=== PATIENT | female | born 1970 | race Caucasian/White ===

== ENCOUNTER 2025-01-18 03:10 | Emergency (ER) | payer BC ==
[~2025-01-18] VITALS: Ht 167.6 cm; Wt 82.1 kg
--- NOTE | 2025-01-18 04:11 | ERN ---
ED Note History of Present Illness Stated Complaint: C/O ABD PAIN W/DIARRHEA, DRY HEAVES, X 3 DAYS Chief Complaint: Abdominal Pain Time Seen by MD: 03:17 Dictation: This is a 54-year-old female who was diagnosed with COVID last week on Friday. She has been on Paxlovid and today is the day for. She came into the ER complaining about abdominal pain and diarrhea for the past 3 days. Nausea vomitings diarrhea abdominal pain she indicated that they just have to new puppies. 1 puppy has Giardia, she reported that she had an anterior neck fusion in on November 30 and has had issues with the dysphagia for pills Patient does not have anymore diarrhea during my evaluation Temperature 98 0.1 pulse 107 respirations 24 blood pressure 154/77 with a pulse oximetry of 94% on room air She is a teacher by profession and does not have any other pertinent history Allergies: Coded Allergies: No Known Allergies (Unverified Allergy, Unknown, 01/18/25) Home Meds Active Scripts Dicyclomine HCl (Bentyl) 10 Mg Cap, 1 CAP PO Q6HPRN PRN for irritable bowel symptoms for 5 Days, #20 CAP 0 Refills Prov:WILMA TUCKER MD 01/18/25 Lactobacillus Acidophilus (Acidophilus Probiotic) 500 Million Cell Capsule, 1 CAP PO BID for 7 Days, #14 CAP 0 Refills Prov:WILMA TUCKER MD 01/18/25 Ondansetron (Ondansetron Odt) 4 Mg Tab.rapdis, 4 MG PO Q6HPRN PRN for nausea, #16 TAB 0 Refills Prov:RAMÍREZ GUERRA MD 01/18/25 Metronidazole (Metronidazole) 500 Mg Tablet, 1 TAB PO BID for 7 Days, #14 TAB 0 Refills Prov:RAMÍREZ GUERRA MD 01/18/25 Past Medical History Past Medical History: No Pertinent History Surgical History: Other Family History: Negative Social History: Negative RN Note Reviewed/Agreed w/PFSH: Yes Review of System Dictation Constitutional: Negative for fever,chills, and weight loss Eyes: Negative for injury, pain,redness, and discharge ENT: Negative for injury,pain or swelling Cardiovascular: Negative for chest pain, palpitations, and edema Respiratory: Negative for shortness of breath, cough, and wheezing, Abdomen/GI: Positive for abdominal pain diarrhea, nausea, vomiting Back: Negative for injury and pain : Negative for injury, bleeding and discharge MS/Extremity: Negative for injury and deformity Skin: Negative for rash, and discoloration Neuro: Negative for headache, weakness, numbness, tingling, and seizure Psych: Negative for suicide ideation, homicidal ideation, and hallucinations Initial Vital Sign VS Vital Signs Date Time Temp Pulse Resp B/P (MAP) Pulse Ox O2 Delivery O2 Flow Rate FiO2 01/18/25 03:12 98.1 107 24 154/77 94 Room Air 01/18/25 03:51 0 21 Physical Exam Dictation General: awake, alert, NAD Head/Face: Normocephalic, atraumatic Eyes: PERRL, EOMI, vision at baseline ENT: oral cavity clear, TMs clear, no signs of infection Neck: Trachea midline, supple, no nuchal rigidity Cardiovascular: RRR, normal S1/S2, No MRGs, no JVD Respiratory: CTAB, no respiratory distress, No rales or wheezes Abdomen: Soft, non-tender, non-distended, normal bowel sounds, no guarding or rebound. Skin: Warm, dry, normal turgor, no rash MS/Extremity: Pulses equal, no cyanosis, neurovascular intact, FROM Neuro: COAx4, GCS 15, strength 5/5, CN 2-12 intact, normal cerebellar exam, normal gait, Psych: Normal behavior, mood, and affect normal Extremities-trace edema without any palpable cords, Homans sign is negative Results (Laboratory/Radiology) Laboratory/Radiology Laboratory Tests Test 01/18/25 04:33 01/18/25 05:06 White Blood Count 8.5 K/uL (4.8-10.8) Red Blood Count 5.03 MIL/uL (4.00-5.50) Hemoglobin 14.8 g/dL (12.0-16.0) Hematocrit 44.1 % (36-48) Mean Corpuscular Volume 87.7 fL (79-99) Mean Corpuscular Hemoglobin 29.4 pg (27.0-33.0) Mean Corpuscular Hemoglobin Concent 33.6 g/dL (32.0-36.0) Red Cell Distribution Width 12.7 % (11.0-15.5) Platelet Count 204 K/uL (130-400) Mean Platelet Volume 10.1 fL (7.5-10.5) Immature Granulocyte % (Auto) 0.4 % (0-1) Neutrophils (%) (Auto) 85.6 % (40.0-77.0) H Lymphocytes (%) (Auto) 7.3 % (21.0-51.0) L Monocytes (%) (Auto) 6.0 % (3.0-13.0) Eosinophils (%) (Auto) 0.6 % (0.0-8.0) Basophils (%) (Auto) 0.1 % (0.0-5.0) Neutrophils # (Auto) 7.3 K/uL (1.8-7.7) Lymphocytes # (Auto) 0.6 K/uL (1.0-4.8) L Monocytes # (Auto) 0.5 K/uL (0.1-1.0) Eosinophils # (Auto) 0.05 K/uL (0.00-0.70) Basophils # (Auto) 0.01 K/uL (0.00-0.20) Absolute Immature Granulocyte (auto 0.03 K/uL (0-1) Nucleated Red Blood Cells 0.0 % (0.0-0.19) White Cell Morphology Comment See comments Sodium Level 140 mmol/L (136-145) Potassium Level 3.9 mmol/L (3.5-5.1) Chloride Level 105 mmol/L (101-111) Carbon Dioxide Level 26 mmol/L (21-32) Blood Urea Nitrogen 12 mg/dL (7-18) Creatinine 0.8 mg/dL (0.5-1.0) Glomerular Filtration Rate Calc 86 mL/min (>90) Random Glucose 120 mg/dL (70-105) H Total Calcium 8.7 mg/dL (8.5-10.1) Lipase 31 U/L (16-77) Human Chorionic Gonadotropin, Quant 4 mIU/mL (0-5) Urine Color LIGHT-YELLOW (YELLOW) Urine Appearance CLEAR (CLEAR) Urine pH 5.0 (5.0-8.0) Urine Specific [place] 1.027 (1.001-1.031) Urine Protein NEGATIVE mg/dL (NEGATIVE) Urine Glucose (UA) NEGATIVE mg/dL (NEGATIVE) Urine Ketones NEGATIVE mg/dL (NEGATIVE) Urine Occult Blood NEGATIVE (NEGATIVE) Urine Nitrate NEGATIVE (NEGATIVE) Urine Bilirubin NEGATIVE mg/dL (NEGATIVE) Urine Urobilinogen 0.2 mg/dL (0.2-1.0) Urine Leukocyte Esterase NEGATIVE James/uL Labs Reviewed?: Yes ED Course ED Course Orders Procedure Category Date Status Time Cbc With Differential LAB 01/18/25 Complete 04:01 Hcg,Quantitative LAB 01/18/25 Complete 04:01 Urinalysis Profile LAB 01/18/25 Complete 04:01 0.9%Nacl 1000ml (Ns PHA 01/18/25 Complete 1000ml) 04:30 Morphine 2mg Syg PHA 01/18/25 Complete (Morphine 2mg Syg) 04:30 Ondansetron 4mg PHA 01/18/25 Complete Tablet (Zofran 4mg 04:30 Lipase LAB 01/18/25 Complete 04:01 Basic Metabolic Panel LAB 01/18/25 Complete 04:01 Ondansetron 4mg Inj PHA 01/18/25 Complete (Zofran 4mg Inj) 06:30 Current Medications Medications (Trade) Dose Ordered Sig/Rancho Route PRN Reason Start Time Stop Time Status Last Admin Dose Admin Morphine Sulfate (morPHINE 2MG SYG) 2 mg ONCE ONCE IVP 01/18/25 04:30 01/18/25 04:31 DC 01/18/25 04:39 Ondansetron HCl (zoFRAN 4MG TABLET) 4 mg ONCE ONCE PO 01/18/25 04:30 01/18/25 04:31 DC 01/18/25 04:38 Ondansetron HCl (zoFRAN 4MG INJ) 4 mg ONCE ONCE IVP 01/18/25 06:30 01/18/25 06:29 DC 01/18/25 06:19 Sodium Chloride 1,000 ml @ 125 mls/hr ONCE ONCE IV 01/18/25 04:30 01/18/25 06:29 DC 01/18/25 04:38 Vital Signs Date Time Temp Pulse Resp B/P (MAP) Pulse Ox O2 Delivery O2 Flow Rate FiO2 01/18/25 05:42 98.4 85 18 133/75 100 Room Air* 0 21 01/18/25 03:51 98.4 107 22 151/80 98 Room Air* 0 01/18/25 03:12 98.1 107 24 154/77 94 Room Air We will perform diagnostic labs, imaging and administer medications according to the patient's complaint. Once the results are available, will review and personally interpreted the labs to rule out any acute life-threatening emergency the trach require immediate intervention and treatment. I will then re-evaluate the patient after treatment and diagnostic exams have return to determine whether the patient requires any further testing, can safely be discharged home or need further admission to hospital for additional treatment and evaluation. Labs reviewed CBC with a normal limits. BNP 7 is with a normal limits urinalysis is unremarkable. I updated her and her spouse on available information lab test results and as a precaution would send a prescription for metronidazole to cover for Giardia in case she has Giardia infection. They both verbalized full underwent Medical Decision Making MDM Differential diagnosis: Gastroenteritis , COVID-19 presentation, side effects of medications, colitis Rationale: Tests considered and ordered secondary to shared decision making include: Previous outside records reviewed: Old ER visits. Risk of complication and/or morbidity or mortality of patient management: None Medications-Per medication reconciliation Need for hospitalization: Patient does not meet criteria for hospitalization. Need for emergency major/minor surgery: No There are no social concerns with this patient. Prescription drug management Prescriptions will include symptomatic care Patient's prior external medical records from other ER visits were reviewed by me as indicated. Prior testing and results from previous visits were reviewed. Prior tests were taken into account with medical decision making and resource utilization, independent historian/historians were used to obtain complete medical history. I independently interpreted the test that were performed, results were reviewed by me and considered findings on radiology if ordered. Medical management and examination interpretation discussions were had by me with other qualified healthcare professionals as indicated for the patient's care. Problem List Problem List: (1) Gastroenteritis (2) COVID-19 virus infection DX & DISP Disposition: Discharge Departure Impression: Primary Impression: Gastroenteritis Additional Impression: COVID-19 virus infection Condition: Stable Scripts Ondansetron (Ondansetron Odt) 4 Mg Tab.rapdis 4 MG PO Q6HPRN PRN for nausea, #16 TAB 0 Refills Prov: RAMÍREZ GUERRA MD 01/18/25 Metronidazole (Metronidazole) 500 Mg Tablet 1 TAB PO BID for 7 Days, #14 TAB 0 Refills Prov: RAMÍREZ GUERRA MD 01/18/25 Additional Instructions: Patient and the caregiver have been informed of all the diagnostic tests and the imaging conducted during the today's visit to the emergency room and has verbalized understanding of the results I have personally reviewed and interpreted all diagnostic exams performed here in the ER today as well as the vital signs documented by the nursing staff. The patient is now being discharged to home and should follow up with the primary care physician or the specialist as directed by the ER staff. Follow-up with primary care provider in 1 to 2 days. Take medications as directed here in the emergency room. Okay to continue home medications unless otherwise discussed during your visit in the emergency room today. Return to your nearest emergency room if symptoms worsen or if there is no improvement. Call 911 if you need immediate assistance. Take Tylenol or Motrin [id number] as needed and if no contraindications are present. Increase oral hydration. A wound culture or urine culture was ordered here in the emergency room department please follow-up with primary care provider and advise them to get repeat ports from our facility. If you had any Yahir wrap/splints that were applied here, please do not remove them until you see your primary care or specialty. Referrals: SELF,REFERRAL (PCP) RAMÍREZ GUERRA MD Jan 18, 2025 04:11
[2025-01-18] MEDS: 0.9%NACL 1000ML 1,000 ML IV ONE (04:38)
[2025-01-18 04:43] LABS: IMMATURE GRANULOCYTE ABSOLUTE 0.03 K/uL (0-1); NUCLEATED RED BLOOD CELLS 0.0 % (0.0-0.19); PLATELET COUNT (AUTO) 204 K/uL (130-400); RED BLOOD CELL COUNT(AUTO) 5.03 MIL/uL (4.00-5.50); RED CELL DISTRIBUTION WIDTH 12.7 % (11.0-15.5); WHITE BLOOD COUNT (AUTO) 8.5 K/uL (4.8-10.8)
[2025-01-18 05:05] LABS: CREATININE 0.8 mg/dL (0.5-1.0); GLOMERULAR FILTR. RATE CALC 86.0 mL/min (>90); GLUCOSE,RANDOM 120.0 mg/dL (70-105); HCG,QUANTITATIVE 4.0 mIU/mL (0-5); SODIUM SERUM 140.0 mmol/L (136-145); UREA NITROGEN, BLOOD 12.0 mg/dL (7-18)
[2025-01-18 05:38] LABS: APPEARANCE,URINE CLEAR (CLEAR); GLUCOSE, URINE (UA) NEGATIVE (NEGATIVE); LEUKOCYTE ESTERASE ,URINE NEGATIVE Leu/uL (NEGATIVE); NITRATE,URINE NEGATIVE (NEGATIVE); OCCULT BLOOD,URINE NEGATIVE (NEGATIVE)
[2025-01-18 05:42] VITALS: BP 133/75; PULSE 85; RESP 18; TEMP 98.4; O2SAT 100
[2025-01-18 05:54] LABS: ADD UA MICROSCOPIC NO
[2025-01-18] MEDS ORDERED: METR-172 PO (06:18)
[2025-01-18] MEDS ORDERED: ONDA-243 PO (06:18)
[2025-01-18] MEDS ORDERED: LACT-356 PO (10:53)
[2025-01-18] MEDS ORDERED: DICY10 PO (10:53)
== END 2025-01-18 06:29 | disposition home or self-care (01) ==
LOC: EDH 03:10
DX: K52.9 Noninfective gastroenteritis and colitis, unspecified (principal); U07.1 COVID-19; R10.2 Pelvic and perineal pain; Z79.899 Other long term (current) drug therapy
CPT/HCPCS: 99284; 96374; 96375; 80048; 84702; 83690; 85025; 81003; 36415; Q0162; J2270; J7030; J2405

== ENCOUNTER 2025-01-18 08:46 | Emergency (ER) | payer BC ==
[~2025-01-18] VITALS: Ht 167.6 cm; Wt 82.6 kg
[~2025-01-18 08:46] MED LIST: METR-172 PO; ONDA-243 PO
[2025-01-18 08:48] VITALS: BP 127/106; PULSE 107; RESP 20; TEMP 98.6
[2025-01-18] MEDS: DICYCLOMINE 20MG (10MG/ML) AMP IM ONE (09:14)
[2025-01-18] MEDS: 0.9%NACL 1000ML 1,000 ML IV ONE (09:15)
--- NOTE | 2025-01-18 09:17 | EKG ---
[facility] Test Date: 2025-01-18 Test Time: 08:56:17 Pat Name: YAYA PARADA Department: [facility] Room: Gender: F [employer] Tester: [id number] : [id number] Requested By: WILMA TUCKER Order Number: [id number] Reading MD: Lois Taylor Measurements Intervals [place] Rate: 102 P: 66 PA: 155 QRS: 70 QRSD: 81 T: -29 QT: 323 QTc: 421 Interpretive Statements Sinus tachycardia No previous ECG available for comparison Electronically Signed On 01-18-2025 14:05:23 CDT by Lois Taylor Please click the below link to view image of tracing.
[2025-01-18 09:42] LABS: IMMATURE GRANULOCYTE ABSOLUTE 0.02 K/uL (0-1); NUCLEATED RED BLOOD CELLS 0.0 % (0.0-0.19); PLATELET COUNT (AUTO) 202 K/uL (130-400); RED BLOOD CELL COUNT(AUTO) 5.07 MIL/uL (4.00-5.50); RED CELL DISTRIBUTION WIDTH 12.6 % (11.0-15.5); WHITE BLOOD COUNT (AUTO) 8.1 K/uL (4.8-10.8)
[2025-01-18 09:56] LABS: CREATININE 0.8 mg/dL (0.5-1.0); GLOMERULAR FILTR. RATE CALC 86.0 mL/min (>90); GLUCOSE,RANDOM 108.0 mg/dL (70-105); SODIUM SERUM 136.0 mmol/L (136-145); UREA NITROGEN, BLOOD 9.0 mg/dL (7-18)
[2025-01-18 09:58] LABS: ASPARTATE AMINOTRANSFERASE 13.0 U/L (10-37); CREATINE KINASE, TOTAL 75.0 U/L (21-232); TOTAL PROTEIN, SERUM 7.3 g/dL (6.0-8.3)
[2025-01-18] MEDS ORDERED: DICY10 PO (10:53)
[2025-01-18] MEDS ORDERED: LACT-356 PO (10:53)
--- NOTE | 2025-01-18 10:55 | ERN ---
General Chief Complaint: Other Problems Stated Complaint: OTHER Time Seen by MD: 08:47 Source: patient History of Present Illness Initial Comments Patient is a 54-year-old female coming in after she was diagnosed with COVID last night. She states that she has been having diarrhea and abdominal cramping. She states he had some pain about her and earlier today which made her symptoms worse Allergies: Coded Allergies: No Known Allergies (Unverified Allergy, Unknown, 01/18/25) Home Meds Active Scripts Ondansetron (Ondansetron Odt) 4 Mg Tab.rapdis, 4 MG PO Q6HPRN PRN for nausea, #1 6 TAB 0 Refills Prov:RAMÍREZ GUERRA MD 01/18/25 Metronidazole (Metronidazole) 500 Mg Tablet, 1 TAB PO BID for 7 Days, #14 TAB 0 Refills Prov:RAMÍREZ GUERRA MD 01/18/25 Past Medical History Past Medical History: No Pertinent History Past Surgical History: Other Surgical History Other: D&C ROS Dictation CONSTITUTIONAL: No chills, no fever, no weakness, no diaphoresis, no malaise. HEAD/FACE: No signs of trauma. EENT: No eye pain, no blurred vision, no tearing, no double vision, no ear pain, no ear discharge, no nose pain, no nasal congestion, no throat pain, no throat swelling, no mouth pain. RESPIRATORY: No cough, no orthopnea, no SOB, no stridor, no wheezing. CARDIOVASCULAR: No chest pain, no edema, no palpitations, no syncope. GASTROINTESTINAL/ABDOMINAL: No abdominal pain, no constipation, no diarrhea, no nausea, no vomiting. GENITOURINARY: No abnormal discharge, no dysuria, no frequent urination, no hematuria. No complaints of pain in the genitals. MUSCULOSKELETAL: No back pain, no gout, no joint pain, no joint swelling, no muscle pain, no muscle stiffness, no neck pain. INTEGUMENTARY: No change in color, no change in hair/nails, no dryness, no lesion, no lumps, no rash. NEUROLOGICAL/PSYCH: No anxiety, not depressed, no emotional problem, no headache, no numbness, no pre-existing deficit, no history of seizures, no tremors, no weakness. HEMATOLOGIC/LYMPHATIC: Not anemic, no history of blood clots, no apparent bleeding, no bruising, glands not swollen. All Systems Negative, Except as Noted. Physical Exam Physical Exam Dictation VITAL SIGNS: Reviewed. GENERAL APPEARANCE: Alert, oriented x3, no acute distress, obese. HEAD AND FACE: Non-traumatic. EYES: PERRL, pink conjunctivas, eyelid no trauma, anterior chamber clear. EARS: Pinnas intact and no signs of trauma or erythema. Ear canals clear and no discharge. TMs no erythema. NOSE: No discharge, no bleeding. OROPHARYNX: Mouth normal, teeth no caries, tongue pink. Pharynx clear, no erythema. Tonsils no exudates, no abscesses noted. Mucous membrane moist. NECK: Supple, non-tender, no thyromegaly, no masses, no JVD, no bruits. BREAST: Deferred. CHEST: No tenderness, no crepitus, no paradoxical movement, no retractions. LUNGS: Clear, well-ventilated, symmetric, no rales, no wheezing, no rhonchi, no stridor, good breath sounds bilaterally. HEART: Regular rate, regular rhythm, no murmur, no gallops. VASCULAR: No peripheral edema. ABDOMEN: Soft, positive bowel sounds, nondistended, no guarding, nontender, no rebound, no masses no hepatomegaly, no splenomegaly, no Rendon's sign, no hernias. RECTAL: Deferred. GENITAL: Deferred. NEUROLOGICAL: Normal speech, gross motor function intact, gross sensory function intact. MUSCULOSKELETAL: Neck nontender, full range of motion, back nontender, full range of motion. EXTREMITIES: Nontender, full range of motion. SKIN: Color pink, dry, no turgor, no rash, no lacerations, no abrasions, no contusions. LYMPHATICS: Deferred. Results Laboratory and Microbiology Lab and Micro Result Laboratory Tests Test 01/18/25 09:31 White Blood Count 8.1 K/uL (4.8-10.8) Red Blood Count 5.07 MIL/uL (4.00-5.50) Hemoglobin 14.8 g/dL (12.0-16.0) Hematocrit 44.7 % (36-48) Mean Corpuscular Volume 88.2 fL (79-99) Mean Corpuscular Hemoglobin 29.2 pg (27.0-33.0) Mean Corpuscular Hemoglobin Concent 33.1 g/dL (32.0-36.0) Red Cell Distribution Width 12.6 % (11.0-15.5) Platelet Count 202 K/uL (130-400) Mean Platelet Volume 10.4 fL (7.5-10.5) Immature Granulocyte % (Auto) 0.2 % (0-1) Neutrophils (%) (Auto) 86.5 % (40.0-77.0) H Lymphocytes (%) (Auto) 7.9 % (21.0-51.0) L Monocytes (%) (Auto) 5.3 % (3.0-13.0) Eosinophils (%) (Auto) 0.0 % (0.0-8.0) Basophils (%) (Auto) 0.1 % (0.0-5.0) Neutrophils # (Auto) 7.0 K/uL (1.8-7.7) Lymphocytes # (Auto) 0.6 K/uL (1.0-4.8) L Monocytes # (Auto) 0.4 K/uL (0.1-1.0) Eosinophils # (Auto) 0.00 K/uL (0.00-0.70) Basophils # (Auto) 0.01 K/uL (0.00-0.20) Absolute Immature Granulocyte (auto 0.02 K/uL (0-1) Nucleated Red Blood Cells 0.0 % (0.0-0.19) Sodium Level 136 mmol/L (136-145) Potassium Level 3.5 mmol/L (3.5-5.1) Chloride Level 103 mmol/L (101-111) Carbon Dioxide Level 27 mmol/L (21-32) Blood Urea Nitrogen 9 mg/dL (7-18) Creatinine 0.8 mg/dL (0.5-1.0) Glomerular Filtration Rate Calc 86 mL/min (>90) Random Glucose 108 mg/dL (70-105) H Total Calcium 8.5 mg/dL (8.5-10.1) Total Bilirubin 0.6 mg/dL (0.2-1.0) Aspartate Amino Transf (AST/SGOT) 13 U/L (10-37) Alanine Aminotransferase (ALT/SGPT) 19 U/L (12-78) Alkaline Phosphatase 95 U/L (50-136) Total Creatine Kinase 75 U/L (21-232) Total Protein 7.3 g/dL (6.0-8.3) Albumin 3.5 g/dL (3.5-5.0) Lipase 26 U/L (16-77) Labs Reviewed?: Yes MDM MDM: Differential diagnosis: Diarrhea, gastroenteritis, viral gastroenteritis Rationale: Tests considered and ordered secondary to shared decision making include: Previous outside records reviewed: Old ER visits. Risk of complication and/or morbidity or mortality of patient management: None Medications-Per medication reconciliation Need for hospitalization: Patient does not meet criteria for hospitalization. Need for emergency major/minor surgery: No Patient is a 54-year-old female coming in complaining of abdominal discomfort patient has recently diagnosis has been having diarrheal episodes. Laboratory workup within normal limits patient was hydrated with IV fluids given antispasmodics as well as proton pump inhibitors and states his he feels fine now. Patient will be discharged in stable condition medication was previously provided she will continue taking I will add a course of probiotics. Patient will be discharged in stable condition. ED Course Orders Procedure Category Date Status Time Cbc With Differential LAB 01/18/25 Complete 08:49 Comprehensive LAB 01/18/25 Complete Metabolic Panel 08:49 Troponin I High LAB 01/18/25 In Process Sensitivity 08:49 Urinalysis Profile LAB 01/18/25 Logged 08:49 12 Lead Ekg Tracing- EKG 01/18/25 Complete Technical 08:49 0.9%Nacl 1000ml (Ns PHA 01/18/25 Complete 1000ml) 09:00 Ondansetron 4mg Inj PHA 01/18/25 Complete (Zofran 4mg Inj) 09:00 Dicyclomine Hcl PHA 01/18/25 Complete (Bentyl 20mg Inj) 09:00 Pantoprazole 40mg Inj PHA 01/18/25 Complete (Protonix 40mg Inj 09:00 Creatine Kinase, Total LAB 01/18/25 Complete 08:49 Lipase LAB 01/18/25 Complete 08:49 Current Medications Medications (Trade) Dose Ordered Sig/Rancho Route PRN Reason Start Time Stop Time Status Last Admin Dose Admin Dicyclomine HCl (Bentyl 20mg Inj) 20 mg ONCE ONCE IM 01/18/25 09:00 01/18/25 09:01 DC 01/18/25 09:14 Ondansetron HCl (zoFRAN 4MG INJ) 4 mg ONCE ONCE IVP 01/18/25 09:00 01/18/25 09:01 DC 01/18/25 09:14 Pantoprazole Sodium (PROTonix 40MG INJ) 40 mg ONCE ONCE IVP 01/18/25 09:00 01/18/25 09:01 DC 01/18/25 09:14 Sodium Chloride 1,000 ml @ 0 mls/hr ONCE ONCE IV 01/18/25 09:00 01/18/25 09:01 DC 01/18/25 09:15 Vital Signs Date Time Temp Pulse Resp B/P (MAP) Pulse Ox O2 Delivery O2 Flow Rate FiO2 01/18/25 08:48 98.6 107 20 127/106 99 Room Air 0 DX & DISP Disposition: Discharge Departure Impression: Primary Impression: Viral gastroenteritis Condition: Stable Scripts Dicyclomine HCl (Bentyl) 10 Mg Cap 1 CAP PO Q6HPRN PRN for irritable bowel symptoms for 5 Days, #20 CAP 0 Refills Prov: WILMA TUCKER MD 01/18/25 Lactobacillus Acidophilus (Acidophilus Probiotic) 500 Million Cell Capsule 1 CAP PO BID for 7 Days, #14 CAP 0 Refills Prov: WILAM TUCKER MD 01/18/25 Additional Instructions: FOLLOW-UP WITH PRIMARY CARE PROVIDER IN 1 TO 2 DAYS. TAKE MEDICATIONS DIRECTED HERE IN THE EMERGENCY ROOM. OKAY TO CONTINUE HOME MEDICATIONS UNLESS OTHERWISE DISCUSSED DURING YOUR VISIT IN THE EMERGENCY ROOM TODAY. RETURN TO YOUR NEAREST EMERGENCY ROOM IF SYMPTOMS WORSEN OR IF THERE IS NO IMPROVEMENT. CALL 911 IF YOU NEED IMMEDIATE ASSISTANCE. TAKE TYLENOL [id number] NEEDED AND IF NO CONTRAINDICATIONS ARE PRESENT. INCREASE ORAL HYDRATION. A WOUND CULTURE OR URINE CULTURE WAS ORDERED HERE IN THE EMERGENCY ROOM DEPARTMENT PLEASE FOLLOW-UP WITH PRIMARY CARE PROVIDER AND ADVISE THEM TO GET REPORTS FROM OUR FACILITY. IF YOU HAD ANY NORA WRAP/SPLINTS THAT WERE APPLIED HERE, PLEASE DO NOT REMOVE THEM UNTIL YOU SEE YOUR PRIMARY CARE OR SPECIALTY. Referrals: Referrals: SELF,REFERRAL (PCP) FILIBERTO BULLOCK MD Time of Disposition: 10:52 WILMA TUCKER MD Jan 18, 2025 10:54
== END 2025-01-18 11:29 | disposition home or self-care (01) ==
LOC: EDH 08:46
DX: A08.4 Viral intestinal infection, unspecified (principal)
CPT/HCPCS: 99284; 96374; 96375; 82550; 84484; 80053; 83690; 85025; 36415; 93005; 96372; J7030; J2405; J2470; J0500